=== PATIENT | male | born 1980 | race Caucasian/White ===

== ENCOUNTER → 2018-12-17 | Outpatient (CLI) | payer OTHER ==
--- NOTE | 2018-12-17 10:48 | RADIOLOGY IMAGING REPORT ---
FACILITY: [facility] PATIENT NAME: Lorenzo Chatman : 1980 MR: [id number] V: [id number] EXAM DATE: ORDERING PHYSICIAN: MIGUE BARBA TECHNOLOGIST: Location: [facility] Patient: Lorenzo Chatman : 1980 Visit/Account:[id number] Date of Sevice: 12/17/2018 KIDNEYS HISTORY: Neurogenic bladder ADDITIONAL HISTORY: Patient self catheterizes. Patient is wheelchair-bound. COMPARISON: Renal ultrasound 04/24/2017 FINDINGS: Kidneys: Right kidney- 10.7 craniocaudad by 4.4 x 3.7 cm, normal parenchymal thickness and echogenicity. Ther e is a tiny cysts in the medial cortex measuring 1 cm longest dimension. Left kidney- 11.6 craniocaudad by 5.9 x 5.0 cm, normal parenchymal thickness and echogenicity. Uniform and symmetric blood flow in each kidney by Doppler ultrasound. Hydronephrosis: None. Bladder: Unremarkable. No appreciable bladder wall thickening or trabeculation. Bilateral ureteral jets: Documented Prevoid volume 178 mL and post void volume 21 mL. No significant postvoid residual. Abdominal aorta and IVC: Patent by Doppler ultrasound. IMPRESSION: Unremarkable exam. Report Dictated By: Esa Amos MD at 12/17/2018 10:38 AM Report E-Signed By: Esa Amos MD at 12/17/2018 10:44 AM WSN:[id number]
== END ==
LOC: US 01:06
PROVIDERS: ATTEND Urology
DX: N31.8 Other neuromuscular dysfunction of bladder (principal)
CPT/HCPCS: 36415; 76705; 82565